=== PATIENT | female | born 1960 | race Caucasian/White ===

== ENCOUNTER 2016-12-29 15:01 | Emergency (ER) | payer OTHER ==
--- NOTE | 2016-12-29 16:19 | DIAGNOSTIC IMAGING REPORT ---
PROCEDURE: XR CHEST 2 VIEW INDICATION: COUGH TECHNIQUE: PA and lateral views. COMPARISON: None. FINDINGS: Lungs are clear. Mild cardiomegaly. The pulmonary vasculature is normal. Thorax is normal. IMPRESSION: 1. Mild cardiomegaly. Lungs clear.
--- NOTE | 2016-12-29 18:11 | ED NURSING NOTES ---
Clinical Report - Nurses [facility] [address] [place] [address] 12/29/2016 15:04 [id number] Triage time 15:12 Dec 29 2016. Acuity: LEVEL 3. Chief Complaint: SHORTNESS OF BREATH, DIFFICULTY BREATHING and WHEEZING. Alert. CHYNA COMA SCORE: [place] Coma Scale: 15- eyes open spontaneously (4); best verbal response- oriented x 4 (5); best motor response- obeys commands (6). --15:41 Ronnie Leonard R.N. 15:16 12/29/16. BP: 156/75. HR: 101. RR: 18. O2 saturation: 100% on room air. Temp: 98.1 F. Pain level now: 03/31. Additional comments: MALLORY pain and stomach. --15:41 Ronnie Leonard R.N. Weight: 102.9 kg stated. Height/Length: 69 inches Per Patient. BMI: 33.5. --15:20 Ronnie Leonard R.N. Medications NovoLOG Subcutaneous 45 Units, 4-6 times x daily. --15:23 Ronnie Leonard R.N. Lantus Subcutaneous 60 Units, every PM. --15:24 Ronnie Leonard R.N. Levothyroxine Sodium Oral 88 mcg, daily. --15:25 Ronnie Leonard R.N. AmLODIPine Besylate Oral 5 mg, daily. --15:27 Ronnie Leonard R.N. Gabapentin Oral 600 mg, at bedtime. --15:28 Ronnie Leonard R.N. Qvar Inhalation (Aerosol Solution 40 mcg/act) 1-2 puffs, daily. --15:29 Ronnie Leonard R.N. Flonase Nasal. --15:30 Ronnie Leonard R.N. Losartan Potassium Oral 100 mg, daily. --15:31 Ronnie Leonard R.N. NexIUM Oral. --15:32 Ronnie Leonard R.N. Allergies Morphine and Related. --15:32 Ronnie Leonard R.N. Darovet. --15:33 Ronnie Leonard R.N. Percocet. Definite Moderate(anxiety) (Hallucinations) --15:33 Ronnie Leonard R.N. Percodan. Definite Moderate(anxiety) (Hallucinations) --15:33 Ronnie Leonard R.N. History Arrived by private vehicle. Historian: patient. Accompanied by family. Primary physician ([facility]). ( SOB associated with N/V and dizziness. 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 Onset. (about 2 days ago). Treatment RETAIL ADVISOR: None. PAST MEDICAL HX: Hypertension. Immunizations: status is unknown. The patient is post-menopausal. SOCIAL HX: Never smoker. Alcohol use; consumes two liquor daily. No drug use. Infectious disease exposure. (maybe Hanta Virus (?)). ABUSE ASSESSMENT: No report of abuse. FALL RISK ASSESSMENT: Fall risk assessment completed. No fall risk identified. NUTRITIONAL RISK ASSESSMENT: The nutritional risk assessment revealed no deficiencies. FUNCTIONAL ASSESSMENT: Functional assessment: no impairments noted. LEARNING NEEDS ASSESSMENT: The learning needs assessment revealed no barriers. SKIN INTEGRITY ASSESSMENT: Skin integrity risk assessment completed. No skin integrity risk identified. --15:41 Ronnie Leonard R.N. ( Just recently had Pneumonia). --15:44 Ronnie Leonard R.N. PROBLEMS: Thyroid Disease. Diabetes Mellitus. --15:34 Ronnie Leonard R.N. UTI - Urinary Tract Infection. Sinusitis. Migraine Headache. Depression. --15:36 Ronnie Leonard R.N. Pneumonia. --15:43 Ronnie Leonard R.N. ADDITIONAL SURGERIES: Appendectomy. Breast Surgery for Cyst. Cholecystectomy. . Tubal Ligation. --15:34 Ronnie Leonard R.N. Interventions ID and allergy band on patient. To treatment room. --15:41 Ronnie Leonard R.N. PHYSICAL ASSESSMENT Ambulatory to room. GENERAL / NEURO / PSYCH: Alert. Oriented X 4. HEENT: Mucous membranes are pink. RESPIRATORY: Respirations not labored. CVS: Capillary refill less than 2 seconds. GI / : Bowel sounds within normal limits. SKIN: Skin is warm and dry. Normal skin turgor. --15:42 Ronnie Leonard R.N. NURSING PROGRESS NOTES Patient gowned. Reassurance given. Patient identifiers checked. Call light placed in reach. Side rails up x 2. Patient ready for evaluation- chart flagged and ED physician notified. --15:42 Ronnie Leonard R.N. 16:21 12/29/2016 Site #1 started via IV in the right antecubital space with an 20g angiocath; one attempt. Blood drawn: rainbow set. Labeled in the presence of the patient. --16:26 Sheeba Garcia R.N. 16:26 12/29/2016 Started bag #1 250 mL IV Fluids IV NS (Saline); at 250 mL/hr over 4 hour(s) via site #1 via IV pump. Allergies verified and confirmed 5 rights. IV patency established. IV site checked: no pain, redness, or swelling. IV flushed thoroughly pre- and post-medication administration. Completed per protocol. --16:26 Sheeba Garcia R.N. 16:36 12/29/2016 PHENERGAN (Promethazine HCl) IVP 12.5 mg given over 30 second(s) via site #1. Allergies verified and confirmed 5 rights. IV patency established. IV site checked: no pain, redness, or swelling. IV flushed thoroughly pre- and post-medication administration. IVP given by RN. --16:36 Sheeba Garcia R.N. 17:00 12/29/16. BP: 118/64 (regular adult cuff) taken on the left arm, via an automated monitor, while lying. HR: 92. RR: 15. O2 saturation: 100%. Pain level now: 0/10. --18:53 Sheeba Garcia R.N. late entry - 17:00. Cardiac rhythm: normal sinus rhythm. monitor worker, pulse oximeter and NIBP monitor placed on patient. Reassurance given. Call light placed in reach. Side rails up. Bed placed in lowest position. Brakes of bed on. --18:53 Sheeba Garcia R.N. 17:31 12/29/2016 PHENERGAN IVP Response: no adverse reaction pain is improving. Symptoms have improved the patient feels better. --18:56 Sheeba Garcia R.N. 18:31 12/29/2016 IV Fluids IV NS Discontinued: bag #1 infused upon discharge. Total amount infused: 800 mL. IV patency established. IV site checked: no pain, redness, or swelling. IV flushed thoroughly. --18:56 Sheeba Garcia R.N. DISPOSITION / DISCHARGE 18:30 12/29/2016 Site #1 removed upon discharge. Catheter intact. Manual pressure and bandaid applied. --18:54 Shebea Garcia R.N. Cardiac rhythm: normal sinus rhythm. Departure time: 1834. Condition at departure: improved and stable. The goals identified in the patient's plan of care were met. No learning barriers present. Discharge instructions provided and reviewed with the patient. Reviewed medication(s) side effects, precautions, dosing and course information. Prescription(s) given to the patient. Patient verbalized understanding. Written instructions provided in Ukrainian. The patient was discharged by the physician. She was discharged home and accompanied by glue drier operator. She left the Emergency Department ambulatory and via private vehicle. Diver'S Tender driving. FALL RISK ASSESSMENT: Fall risk assessment completed. No fall risk identified. CHYNA COMA SCORE: [place]yna Coma Scale: 15- eyes open spontaneously (4); best verbal response- oriented x 4 (5); best motor response- obeys commands (6). --18:55 Sheeba Garcia R.N. 18:30 12/29/16. BP: 136/79 (regular adult cuff) taken on the left arm, via an automated monitor, while sitting. HR: 89. RR: 16. O2 saturation: 100% on room air. Temp: 98.2 F (oral). Pain level now: 0/10. --18:55 Sheeba Garcia R.N. Locked/Released at 12/29/2016 18:57 by Sheeba Garcia R.N.
--- NOTE | 2016-12-29 18:11 | ED ORDER SUMMARY ---
..... Patient: HALEIGH TALAMANTES OrderSheet [facility] VisitID: [id number] [address] [place] [address] 56y, F Registration Date/Time: 12/29/2016 ORDER SHEET Weight: 102.9 kg (stated) Allergies: Morphine and Related, Darovet, Percocet, Percodan GENERAL ORDERS: Chest 2V Urgent (15:56 12/29/2016 Asmita GERONIMO) (Ack 16:10 Juan) (16:25 EHassan R.N.) UA-Culture if indicated Urgent (15:56 12/29/2016 Asmita GERONIMO) (Ack 16:10 Juan) (16:24 EHassan R.N.) Cardiac Panel Stat (15:56 12/29/2016 Asmtia GERONIMO) (Ack 16:10 Juan) (16:24 EHassan R.N.) Lipase Urgent (15:56 12/29/2016 Asmita GERONIMO) ([facility]ck [facility] (16:25 EHassan R.N.) CRP Urgent (15:56 12/29/2016 Asmita GERONIMO) (Ack 16:10 [facility]) (16:25 EHassan R.N.) Rapid Influenza Screen (Nasal Pharyngeal) (swab) Urgent (16:10 12/29/2016 Asmita GERONIMO) (Ack 16:12 [facility]) (16:25 EHassan R.N.) MEDICATION ORDERS: Phenergan IV 12.5 mg (HIGH ALERT MEDICATION, NOW) (16:32 12/29/2016 Asmita GERONIMO) (16:36 EHassacamron R.N.) IV FLUIDS: IV NS : initial bolus none -, then 250 mL/hr for 4h (NOW); Routine (15:56 12/29/2016 Asmita GERONIMO) (16:26 EHassacamron R.N.) Zofran IV 4 mg (NOW) (15:56 12/29/2016 Asmita GERONIMO) (Cancelled: Patient [id number] EHassan R.N.) ORDER SHEET NOTES: [Electronically signed by Sheeba Garcia R.N. (18:57 12/29/2016)] [Electronically signed by Sanford Horton MD (10:36 01/01/2017)] [Electronically locked/signed by Sheeba Garcia R.N. (18:57 12/29/2016)]
--- NOTE | 2016-12-29 18:11 | ED NURSING NOTES ---
Clinical Report - Nurses [facility] [address] [place] [address] 12/29/2016 15:04 [id number] Triage time 15:12 Dec 29 2016. Acuity: LEVEL 3. Chief Complaint: SHORTNESS OF BREATH, DIFFICULTY BREATHING and WHEEZING. Alert. CHYNA COMA SCORE: [place] Coma Scale: 15- eyes open spontaneously (4); best verbal response- oriented x 4 (5); best motor response- obeys commands (6). --15:41 Ronnie Leonard R.N. 15:16 12/29/16. BP: 156/75. HR: 101. RR: 18. O2 saturation: 100% on room air. Temp: 98.1 F. Pain level now: 03/31. Additional comments: MALLORY pain and stomach. --15:41 Ronnie Leonard R.N. Weight: 102.9 kg stated. Height/Length: 69 inches Per Patient. BMI: 33.5. --15:20 Ronnie Leonard R.N. Medications NovoLOG Subcutaneous 45 Units, 4-6 times x daily. --15:23 Ronnie Leonard R.N. Lantus Subcutaneous 60 Units, every PM. --15:24 Ronnie Leonard R.N. Levothyroxine Sodium Oral 88 mcg, daily. --15:25 Ronnie Leonard R.N. AmLODIPine Besylate Oral 5 mg, daily. --15:27 Ronnie Leonard R.N. Gabapentin Oral 600 mg, at bedtime. --15:28 Ronnie Leonard R.N. Qvar Inhalation (Aerosol Solution 40 mcg/act) 1-2 puffs, daily. --15:29 Ronnie Leonard R.N. Flonase Nasal. --15:30 Ronnie Leonard R.N. Losartan Potassium Oral 100 mg, daily. --15:31 Ronnie Leonard R.N. NexIUM Oral. --15:32 Ronnie Leonard R.N. Allergies Morphine and Related. --15:32 Ronnie Leonard R.N. Darovet. --15:33 Ronnie Leonard R.N. Percocet. Definite Moderate(anxiety) (Hallucinations) --15:33 Ronnie Leonard R.N. Percodan. Definite Moderate(anxiety) (Hallucinations) --15:33 Ronnie Leonard R.N. History Arrived by private vehicle. Historian: patient. Accompanied by family. Primary physician ([facility]). ( SOB associated with N/V and dizziness. 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 Onset. (about 2 days ago). Treatment HAND TWISTER: None. PAST MEDICAL HX: Hypertension. Immunizations: status is unknown. The patient is post-menopausal. SOCIAL HX: Never smoker. Alcohol use; consumes two liquor daily. No drug use. Infectious disease exposure. (maybe Hanta Virus (?)). ABUSE ASSESSMENT: No report of abuse. FALL RISK ASSESSMENT: Fall risk assessment completed. No fall risk identified. NUTRITIONAL RISK ASSESSMENT: The nutritional risk assessment revealed no deficiencies. FUNCTIONAL ASSESSMENT: Functional assessment: no impairments noted. LEARNING NEEDS ASSESSMENT: The learning needs assessment revealed no barriers. SKIN INTEGRITY ASSESSMENT: Skin integrity risk assessment completed. No skin integrity risk identified. --15:41 Ronnie Leonard R.N. ( Just recently had Pneumonia). --15:44 Ronnie Leonard R.N. PROBLEMS: Thyroid Disease. Diabetes Mellitus. --15:34 Ronnie Leonard R.N. UTI - Urinary Tract Infection. Sinusitis. Migraine Headache. Depression. --15:36 Ronnie Leonard R.N. Pneumonia. --15:43 Ronnie Leonard R.N. ADDITIONAL SURGERIES: Appendectomy. Breast Surgery for Cyst. Cholecystectomy. . Tubal Ligation. --15:34 Ronnie Leonard R.N. Interventions ID and allergy band on patient. To treatment room. --15:41 Ronnie Leonard R.N. PHYSICAL ASSESSMENT Ambulatory to room. GENERAL / NEURO / PSYCH: Alert. Oriented X 4. HEENT: Mucous membranes are pink. RESPIRATORY: Respirations not labored. CVS: Capillary refill less than 2 seconds. GI / : Bowel sounds within normal limits. SKIN: Skin is warm and dry. Normal skin turgor. --15:42 Ronnie Leonard R.N. NURSING PROGRESS NOTES Patient gowned. Reassurance given. Patient identifiers checked. Call light placed in reach. Side rails up x 2. Patient ready for evaluation- chart flagged and ED physician notified. --15:42 Ronnie Leonard R.N. 16:21 12/29/2016 Site #1 started via IV in the right antecubital space with an 20g angiocath; one attempt. Blood drawn: rainbow set. Labeled in the presence of the patient. --16:26 Sheeba Garcia R.N. 16:26 12/29/2016 Started bag #1 250 mL IV Fluids IV NS (Saline); at 250 mL/hr over 4 hour(s) via site #1 via IV pump. Allergies verified and confirmed 5 rights. IV patency established. IV site checked: no pain, redness, or swelling. IV flushed thoroughly pre- and post-medication administration. Completed per protocol. --16:26 Sheeba Garcia R.N. 16:36 12/29/2016 PHENERGAN (Promethazine HCl) IVP 12.5 mg given over 30 second(s) via site #1. Allergies verified and confirmed 5 rights. IV patency established. IV site checked: no pain, redness, or swelling. IV flushed thoroughly pre- and post-medication administration. IVP given by RN. --16:36 Sheeba Garcia R.N. 17:00 12/29/16. BP: 118/64 (regular adult cuff) taken on the left arm, via an automated monitor, while lying. HR: 92. RR: 15. O2 saturation: 100%. Pain level now: 0/10. --18:53 Sheeba Garcia R.N. late entry - 17:00. Cardiac rhythm: normal sinus rhythm. youth nutritional monitor, pulse oximeter and NIBP monitor placed on patient. Reassurance given. Call light placed in reach. Side rails up. Bed placed in lowest position. Brakes of bed on. --18:53 Sheeba Garcia R.N. 17:31 12/29/2016 PHENERGAN IVP Response: no adverse reaction pain is improving. Symptoms have improved the patient feels better. --18:56 Sheeba Garcia R.N. 18:31 12/29/2016 IV Fluids IV NS Discontinued: bag #1 infused upon discharge. Total amount infused: 800 mL. IV patency established. IV site checked: no pain, redness, or swelling. IV flushed thoroughly. --18:56 Sheeba Garcia R.N. DISPOSITION / DISCHARGE 18:30 12/29/2016 Site #1 removed upon discharge. Catheter intact. Manual pressure and bandaid applied. --18:54 Sheeba Garcia R.N. Cardiac rhythm: normal sinus rhythm. Departure time: 1834. Condition at departure: improved and stable. The goals identified in the patient's plan of care were met. No learning barriers present. Discharge instructions provided and reviewed with the patient. Reviewed medication(s) side effects, precautions, dosing and course information. Prescription(s) given to the patient. Patient verbalized understanding. Written instructions provided in Syriac. The patient was discharged by the physician. She was discharged home and accompanied by industrial pharmacist. She left the Emergency Department ambulatory and via private vehicle. Customer Security Clerk driving. FALL RISK ASSESSMENT: Fall risk assessment completed. No fall risk identified. CHYNA COMA SCORE: [place]yna Coma Scale: 15- eyes open spontaneously (4); best verbal response- oriented x 4 (5); best motor response- obeys commands (6). --18:55 Sheeba Garcia R.N. 18:30 12/29/16. BP: 136/79 (regular adult cuff) taken on the left arm, via an automated monitor, while sitting. HR: 89. RR: 16. O2 saturation: 100% on room air. Temp: 98.2 F (oral). Pain level now: 0/10. --18:55 Sheeba Garcia R.N. Locked/Released at 12/29/2016 18:57 by Sheeba Garcia R.N.
--- NOTE | 2016-12-29 18:11 | ED ORDER SUMMARY ---
..... Patient: HALEIGH TALAMANTES OrderSheet [facility] VisitID: [id number] [address] [place] [address] 56y, F Registration Date/Time: 12/29/2016 ORDER SHEET Weight: 102.9 kg (stated) Allergies: Morphine and Related, Darovet, Percocet, Percodan GENERAL ORDERS: Chest 2V Urgent (15:56 12/29/2016 Asmita GERONIMO) (Ack 16:10 Juan) (16:25 EHassan R.N.) UA-Culture if indicated Urgent (15:56 12/29/2016 Asmita GERONIMO) (Ack 16:10 Juan) (16:24 EHassan R.N.) Cardiac Panel Stat (15:56 12/29/2016 Asmita GERONIMO) (Ack 16:10 Juan) (16:24 EHassan R.N.) Lipase Urgent (15:56 12/29/2016 Asmita GERONIMO) ([facility] (16:25 EHassan R.N.) CRP Urgent (15:56 12/29/2016 Asmita GERONIMO) (Ack 16:10 [facility]) (16:25 EHassan R.N.) Rapid Influenza Screen (Nasal Pharyngeal) (swab) Urgent (16:10 12/29/2016 Asmita GERONIMO) (Ack 16:12 [facility] (16:25 EHassan R.N.) MEDICATION ORDERS: Phenergan IV 12.5 mg (HIGH ALERT MEDICATION, NOW) (16:32 12/29/2016 Asmita GERONIMO) (16:36 EHassacamron R.N.) IV FLUIDS: IV NS : initial bolus none -, then 250 mL/hr for 4h (NOW); Routine (15:56 12/29/2016 Asmita GERONIMO) (16:26 EHassacamron R.N.) Zofran IV 4 mg (NOW) (15:56 12/29/2016 Asmita GERONIMO) (Cancelled: Patient [id number] EHassan R.N.) ORDER SHEET NOTES: [Electronically signed by Sheeba Garcia R.N. (18:57 12/29/2016)] [Electronically signed by Sanford Horton MD (10:36 01/01/2017)] [Electronically locked/signed by Sheeba Garcia R.N. (18:57 12/29/2016)]
--- NOTE | 2016-12-29 18:11 | ED CLINICAL REPORT ---
Clinical Report - Physicians/Mid Levels [facility] [address] [place] [address] 12/29/2016 15:04 Patient: HALEIGH TALAMANTES Time Seen: 15:14 Dec 29 2016. Arrived- By private vehicle. Historian- patient. CPT: ER phys charges level 4 (#[id number]). HISTORY OF PRESENT ILLNESS Chief Complaint: DYSPNEA and ABDOMINAL PAIN cough, vomiting. This started 2 days [employer] and is still present. The dyspnea is described as moderate and is worsened by exertion and is improved by rest. The patient has had sputum production and a cough. No fever, sweating episodes, wheezing or dyspnea on exertion. No chest pain or discomfort, calf pain, foot swelling or dizziness. No tingling, numbness or palpitations. 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 She worries about possible Hanta virus as the cause of her illness.,). Similar symptoms previously: Recent medical care: Not recently seen/assessed. REVIEW OF SYSTEMS No muscle aches, eye irritation, sore throat, nasal discharge or sinus drainage. No diarrhea, black stools, bloody stools, headache or fainting episodes. No skin rash, enlarged lymph nodes or joint pain. The patient has had nausea and moderate, constant abdominal pain. The pain is described as located in the upper abdomen, right upper quadrant and left upper quadrant. She has had vomiting (today). All systems otherwise negative, except as recorded above. PAST HISTORY Influenza: October this year with secondary pneumonia for 3 weeks. Recently over that illness for the past 3 weeks. Thyroid Disease. Diabetes Mellitus. - UTI - Urinary Tract Infection. Sinusitis. Migraine Headache. Depression. - Pneumonia. -- ADDITIONAL SURGERIES: Appendectomy. Breast Surgery for Cyst. Cholecystectomy. . Tubal Ligation. Severe gastroesophageal reflux. Medications: NexIUM Oral. Losartan Potassium Oral 100 mg, daily. Flonase Nasal. Qvar Inhalation (Aerosol Solution 40 mcg/act) 1-2 puffs, daily. Gabapentin Oral 600 mg, at bedtime. AmLODIPine Besylate Oral 5 mg, daily. Levothyroxine Sodium Oral 88 mcg, daily. Lantus Subcutaneous 60 Units, every PM. NovoLOG Subcutaneous 45 Units, 4-6 times x daily. Allergies: Darovet. Morphine and Related. Percocet. Definite Moderate(anxiety) (Hallucinations) Percodan. Definite Moderate(anxiety) (Hallucinations). SOCIAL HISTORY Never smoker. Regular alcohol use; consumes liquor. No drug use. ADDITIONAL NOTES The nursing notes have been reviewed. PHYSICAL EXAM Vital Signs: 12/29/2016 15:16 BP: 156/75. HR: 101. RR: 18. O2 saturation: 100%. Temp: 98.1 F. Pain level now: 03/31. Appearance: Alert. No acute distress. Eyes: Eyes normal inspection. ENT: Pharynx normal. Neck: Normal inspection. CVS: Normal heart rate and rhythm. Heart sounds normal. Pulses normal. Respiratory: No respiratory distress. Expiratory mild bilateral wheezes diffusely. Abdomen: Soft and nontender. Back: Normal inspection. No CVA tenderness. Skin: Skin warm. Normal skin color. No rash. Extremities: Extremities exhibit normal ROM. No calf tenderness. No lower extremity edema. Neuro: Oriented X 3. No motor deficit. No sensory deficit. Reflexes normal. LABS, X-RAYS, AND EKG Chest X-ray: No acute disease. Mild cardiomegaly. Normal lung markings present. No infiltrate. Views: PA and lateral. Technique: good. The X-rays were independently viewed by me and interpreted by the radiologist. Laboratory Tests: UA-Culture if indicated: (ALEXSANDER: 12/29/2016 16:10) ( MsgRcvd 12/29/2016 16:37) Final results Test Result Flag Units (Reference) URINE COLOR YELLOW URINE APPEARANCE CLEAR URINE GLUCOSE NEGATIVE (NEGATIVE) URINE BILIRUBIN NEGATIVE (NEGATIVE) URINE KETONE NEGATIVE (NEGATIVE) URINE SPECIFIC GRAVITY 1.020 (1.010-1.030) URINE PH 7.5 (5.0-8.0) URINE PROTEIN TRACE (NEGATIVE) URINE UROBILINOGEN 0.2 EU/dL (0.2-1.0) URINE NITRITE NEGATIVE (NEGATIVE) URINE BLOOD NEGATIVE (NEGATIVE) URINE LEUK ESTERASE NEGATIVE (NEGATIVE) URINE RBC NONE SEEN rbc/hpf (0-1) URINE WBC 1-3 wbc/hpf (0-1) URINE EPITHELIAL CELLS 1-3 EPI/hpf (0-5) URINE BACTERIA FEW (1+) (NONE SEEN) 4+ MUCOUS URINE COMMENT CULT NOT INDICATED URINE CULTURES ARE SET-UP BASED ON THE FOLLOWING CRITERIA:POSITIVE NITRITEPOSITIVE LEUKOCYTE ESTERASEGREATER THAN 10 WHITE BLOOD CELLSMODERATE (2+) OR GREATER BACTERIA CBC w Diff: (ALEXSANDER: 12/29/2016 16:20) ( [facility] 12/29/2016 17:20) Final results Test Result Flag Units (Reference) WHITE BLOOD COUNT 6.5 K/uL (4.5-11.5) RED BLOOD COUNT 4.68 M/uL (4.00-5.20) HEMOGLOBIN 14.4 gm/dL (12.0-16.0) HEMATOCRIT 41.8 % (36.0-46.0) MEAN CELL VOLUME 89 fL (80-100) MEAN CORPUSCULAR HGB 31 pg (26-34) MEAN CORPUSCULAR HGB CONC 34 g/dL (31-37) RED CELL DISTRIBUTION WIDTH 13.8 % (11.6-14.8) PLATELET COUNT 375 K/uL (150-400) NEUTROPHIL % 67.3 % (50-75) LYMPH % 19.9 L % (25-40) MONO % 9.4 % (3-14) EOSINOPHIL % 3.0 % (0-4) BASOPHIL % 0.4 % (0-2) Lipase: (ALEXSANDER: 12/29/2016 16:20) ( [facility] 12/29/2016 17:23) Final results Test Result Flag Units (Reference) LIPASE 75 U/L (73-393) C-REACTIVE PROTEIN 1.7 H mg/dL (0.0-0.9) CHEM 13 PANEL: (ALEXSANDER: 12/29/2016 16:20) ( [facility] 12/29/2016 17:29) Final results Test Result Flag Units (Reference) GLUCOSE 149 H mg/dL (70-110) BUN 9 mg/dL (7-18) CREATININE 0.7 mg/dL (0.6-1.3) Estimated GFR >60 mL/min Estimated GFR- >60 mL/min Note: Persistent reduction over 3 months in eGFR<60 mL/min/1.73 m2 defines CKD. Patients with eGFR values>=60 mL/min/1.73 m2 may also have CKD if evidence ofpersistent proteinuria. Additional information may be foundat [email or web address].org. SODIUM 137 mmol/L (136-145) POTASSIUM 3.3 L mmol/L (3.5-5.1) CHLORIDE 99 mmol/L (98-107) CARBON DIOXIDE 31 mmol/L (21-32) CALCIUM 9.7 mg/dL (8.5-10.1) TOTAL PROTEIN 8.4 H g/dL (6.4-8.2) ALBUMIN 4.0 g/dL (3.3-5.0) BILIRUBIN, TOTAL 0.4 mg/dL (0.0-1.0) ALKALINE PHOSPHATASE 84 U/L (46-116) AST (SGOT) 60 H U/L (15-37) ALT (SGPT) 76 U/L (12-78) CPK 155 U/L (24-260) MAGNESIUM 1.9 mg/dL (1.8-2.4) TROPONIN I <0.05 ng/mL (0.00-1.5) TROPONIN REFERENCE RANGE:<0.1 NEGATIVE0.1-1.5 INDETERMINANT>1.5 POSITIVE Rapid Influenza Screen: (ALEXSANDER: 12/29/2016 16:28) ( MsgRcvd 12/29/2016 17:29) Final results SPECIMEN DESCRIPTION: SWAB Test Result Flag Units (Reference) RAPID INFLUENZA SCREEN DATE: 12/29/16 INFLUENZA A: NEGATIVE SCREEN FOR INFLUENZA A INFLUENZA B: NEGATIVE SCREEN FOR INFLUENZA B . PROGRESS AND PROCEDURES Course of Care: IV NS Phenergan 12.5 mg IV. Patient/family counseled. Disposition: Discharged. Condition: stable and improved. CLINICAL IMPRESSION Acute dyspnea Acute bacterial mucopurulent bronchitis. Acute cough. Severe reflux exacerbation. INSTRUCTIONS Rest. Do not work for two days until better. Take clear liquids only (frequent sips) for the next 12 hours until better. Advance diet as tolerated. Take clear liquids only. Other diet: Until better. Warnings: Further evaluation is necessary. GENERAL WARNINGS: Return or contact your physician immediately if your condition worsens or changes unexpectedly, if not improving as expected, or if other problems arise. Your Current Medications: CONTINUE TAKING THE FOLLOWING MEDICATIONS: AmLODIPine Besylate Oral : 5 mg daily. Flonase Nasal. Gabapentin Oral : 600 mg at bedtime. Lantus Subcutaneous : 60 Units every PM. Levothyroxine Sodium Oral : 88 mcg daily. Losartan Potassium Oral : 100 mg daily. NexIUM Oral. NovoLOG Subcutaneous : 45 Units 4-6 times x daily. Qvar Inhalation : Aerosol Solution 40 mcg/act, 1-2 puffs daily. Prescription Medications: Zithromax 250 mg tablets: take 2 orally today, followed by 1 daily for the next 4 days. No refills. Substitution is permissible. Phenergan 12.5 mg tablets: take 1-2 orally every 6 hours as needed for nausea. Dispense fifteen (15). No refill. Substitution is permissible Carafate 1 gm tablets: take 1 orally four times daily (30 minutes before meals and at bedtime) for 10 days. Dispense forty (40). No refills. Substitution is permissible. Prilosec 40 mg capsules: take 1 capsule orally every day for 10 days. Dispense ten (10). No refill. Substitution is permissible. OTC Medications: Acetaminophen (available over the counter): take according to label instructions. Follow-up: Follow up with your doctor in one week. Call for an appointment. Understanding of the discharge instructions verbalized by patient. (Electronically signed by Sanford Horton MD 01/01/2017 10:36)
--- NOTE | 2016-12-29 18:11 | ED CLINICAL REPORT ---
Clinical Report - Physicians/Mid Levels [facility] [address] [place] [address] 12/29/2016 15:04 Patient: HALEIGH TALAMANTES Time Seen: 15:14 Dec 29 2016. Arrived- By private vehicle. Historian- patient. CPT: ER phys charges level 4 (#[id number]). HISTORY OF PRESENT ILLNESS Chief Complaint: DYSPNEA and ABDOMINAL PAIN cough, vomiting. This started 2 days [employer] and is still present. The dyspnea is described as moderate and is worsened by exertion and is improved by rest. The patient has had sputum production and a cough. No fever, sweating episodes, wheezing or dyspnea on exertion. No chest pain or discomfort, calf pain, foot swelling or dizziness. No tingling, numbness or palpitations. 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 She worries about possible Hanta virus as the cause of her illness.,). Similar symptoms previously: Recent medical care: Not recently seen/assessed. REVIEW OF SYSTEMS No muscle aches, eye irritation, sore throat, nasal discharge or sinus drainage. No diarrhea, black stools, bloody stools, headache or fainting episodes. No skin rash, enlarged lymph nodes or joint pain. The patient has had nausea and moderate, constant abdominal pain. The pain is described as located in the upper abdomen, right upper quadrant and left upper quadrant. She has had vomiting (today). All systems otherwise negative, except as recorded above. PAST HISTORY Influenza: October this year with secondary pneumonia for 3 weeks. Recently over that illness for the past 3 weeks. Thyroid Disease. Diabetes Mellitus. - UTI - Urinary Tract Infection. Sinusitis. Migraine Headache. Depression. - Pneumonia. -- ADDITIONAL SURGERIES: Appendectomy. Breast Surgery for Cyst. Cholecystectomy. . Tubal Ligation. Severe gastroesophageal reflux. Medications: NexIUM Oral. Losartan Potassium Oral 100 mg, daily. Flonase Nasal. Qvar Inhalation (Aerosol Solution 40 mcg/act) 1-2 puffs, daily. Gabapentin Oral 600 mg, at bedtime. AmLODIPine Besylate Oral 5 mg, daily. Levothyroxine Sodium Oral 88 mcg, daily. Lantus Subcutaneous 60 Units, every PM. NovoLOG Subcutaneous 45 Units, 4-6 times x daily. Allergies: Darovet. Morphine and Related. Percocet. Definite Moderate(anxiety) (Hallucinations) Percodan. Definite Moderate(anxiety) (Hallucinations). SOCIAL HISTORY Never smoker. Regular alcohol use; consumes liquor. No drug use. ADDITIONAL NOTES The nursing notes have been reviewed. PHYSICAL EXAM Vital Signs: 12/29/2016 15:16 BP: 156/75. HR: 101. RR: 18. O2 saturation: 100%. Temp: 98.1 F. Pain level now: 03/31. Appearance: Alert. No acute distress. Eyes: Eyes normal inspection. ENT: Pharynx normal. Neck: Normal inspection. CVS: Normal heart rate and rhythm. Heart sounds normal. Pulses normal. Respiratory: No respiratory distress. Expiratory mild bilateral wheezes diffusely. Abdomen: Soft and nontender. Back: Normal inspection. No CVA tenderness. Skin: Skin warm. Normal skin color. No rash. Extremities: Extremities exhibit normal ROM. No calf tenderness. No lower extremity edema. Neuro: Oriented X 3. No motor deficit. No sensory deficit. Reflexes normal. LABS, X-RAYS, AND EKG Chest X-ray: No acute disease. Mild cardiomegaly. Normal lung markings present. No infiltrate. Views: PA and lateral. Technique: good. The X-rays were independently viewed by me and interpreted by the radiologist. Laboratory Tests: UA-Culture if indicated: (ALEXSANDER: 12/29/2016 16:10) ( MsgRcvd 12/29/2016 16:37) Final results Test Result Flag Units (Reference) URINE COLOR YELLOW URINE APPEARANCE CLEAR URINE GLUCOSE NEGATIVE (NEGATIVE) URINE BILIRUBIN NEGATIVE (NEGATIVE) URINE KETONE NEGATIVE (NEGATIVE) URINE SPECIFIC GRAVITY 1.020 (1.010-1.030) URINE PH 7.5 (5.0-8.0) URINE PROTEIN TRACE (NEGATIVE) URINE UROBILINOGEN 0.2 EU/dL (0.2-1.0) URINE NITRITE NEGATIVE (NEGATIVE) URINE BLOOD NEGATIVE (NEGATIVE) URINE LEUK ESTERASE NEGATIVE (NEGATIVE) URINE RBC NONE SEEN rbc/hpf (0-1) URINE WBC 1-3 wbc/hpf (0-1) URINE EPITHELIAL CELLS 1-3 EPI/hpf (0-5) URINE BACTERIA FEW (1+) (NONE SEEN) 4+ MUCOUS URINE COMMENT CULT NOT INDICATED URINE CULTURES ARE SET-UP BASED ON THE FOLLOWING CRITERIA:POSITIVE NITRITEPOSITIVE LEUKOCYTE ESTERASEGREATER THAN 10 WHITE BLOOD CELLSMODERATE (2+) OR GREATER BACTERIA CBC w Diff: (ALEXSANDER: 12/29/2016 16:20) ( [facility] 12/29/2016 17:20) Final results Test Result Flag Units (Reference) WHITE BLOOD COUNT 6.5 K/uL (4.5-11.5) RED BLOOD COUNT 4.68 M/uL (4.00-5.20) HEMOGLOBIN 14.4 gm/dL (12.0-16.0) HEMATOCRIT 41.8 % (36.0-46.0) MEAN CELL VOLUME 89 fL (80-100) MEAN CORPUSCULAR HGB 31 pg (26-34) MEAN CORPUSCULAR HGB CONC 34 g/dL (31-37) RED CELL DISTRIBUTION WIDTH 13.8 % (11.6-14.8) PLATELET COUNT 375 K/uL (150-400) NEUTROPHIL % 67.3 % (50-75) LYMPH % 19.9 L % (25-40) MONO % 9.4 % (3-14) EOSINOPHIL % 3.0 % (0-4) BASOPHIL % 0.4 % (0-2) Lipase: (ALEXSANDER: 12/29/2016 16:20) ( [facility] 12/29/2016 17:23) Final results Test Result Flag Units (Reference) LIPASE 75 U/L (73-393) C-REACTIVE PROTEIN 1.7 H mg/dL (0.0-0.9) CHEM 13 PANEL: (ALEXSANDER: 12/29/2016 16:20) ( [facility] 12/29/2016 17:29) Final results Test Result Flag Units (Reference) GLUCOSE 149 H mg/dL (70-110) BUN 9 mg/dL (7-18) CREATININE 0.7 mg/dL (0.6-1.3) Estimated GFR >60 mL/min Estimated GFR- >60 mL/min Note: Persistent reduction over 3 months in eGFR<60 mL/min/1.73 m2 defines CKD. Patients with eGFR values>=60 mL/min/1.73 m2 may also have CKD if evidence ofpersistent proteinuria. Additional information may be foundat [email or web address]. SODIUM 137 mmol/L (136-145) POTASSIUM 3.3 L mmol/L (3.5-5.1) CHLORIDE 99 mmol/L (98-107) CARBON DIOXIDE 31 mmol/L (21-32) CALCIUM 9.7 mg/dL (8.5-10.1) TOTAL PROTEIN 8.4 H g/dL (6.4-8.2) ALBUMIN 4.0 g/dL (3.3-5.0) BILIRUBIN, TOTAL 0.4 mg/dL (0.0-1.0) ALKALINE PHOSPHATASE 84 U/L (46-116) AST (SGOT) 60 H U/L (15-37) ALT (SGPT) 76 U/L (12-78) CPK 155 U/L (24-260) MAGNESIUM 1.9 mg/dL (1.8-2.4) TROPONIN I <0.05 ng/mL (0.00-1.5) TROPONIN REFERENCE RANGE:<0.1 NEGATIVE0.1-1.5 INDETERMINANT>1.5 POSITIVE Rapid Influenza Screen: (ALEXSANDER: 12/29/2016 16:28) ( MsgRcvd 12/29/2016 17:29) Final results SPECIMEN DESCRIPTION: SWAB Test Result Flag Units (Reference) RAPID INFLUENZA SCREEN DATE: 12/29/16 INFLUENZA A: NEGATIVE SCREEN FOR INFLUENZA A INFLUENZA B: NEGATIVE SCREEN FOR INFLUENZA B . PROGRESS AND PROCEDURES Course of Care: IV NS Phenergan 12.5 mg IV. Patient/family counseled. Disposition: Discharged. Condition: stable and improved. CLINICAL IMPRESSION Acute dyspnea Acute bacterial mucopurulent bronchitis. Acute cough. Severe reflux exacerbation. INSTRUCTIONS Rest. Do not work for two days until better. Take clear liquids only (frequent sips) for the next 12 hours until better. Advance diet as tolerated. Take clear liquids only. Other diet: Until better. Warnings: Further evaluation is necessary. GENERAL WARNINGS: Return or contact your physician immediately if your condition worsens or changes unexpectedly, if not improving as expected, or if other problems arise. Your Current Medications: CONTINUE TAKING THE FOLLOWING MEDICATIONS: AmLODIPine Besylate Oral : 5 mg daily. Flonase Nasal. Gabapentin Oral : 600 mg at bedtime. Lantus Subcutaneous : 60 Units every PM. Levothyroxine Sodium Oral : 88 mcg daily. Losartan Potassium Oral : 100 mg daily. NexIUM Oral. NovoLOG Subcutaneous : 45 Units 4-6 times x daily. Qvar Inhalation : Aerosol Solution 40 mcg/act, 1-2 puffs daily. Prescription Medications: Zithromax 250 mg tablets: take 2 orally today, followed by 1 daily for the next 4 days. No refills. Substitution is permissible. Phenergan 12.5 mg tablets: take 1-2 orally every 6 hours as needed for nausea. Dispense fifteen (15). No refill. Substitution is permissible Carafate 1 gm tablets: take 1 orally four times daily (30 minutes before meals and at bedtime) for 10 days. Dispense forty (40). No refills. Substitution is permissible. Prilosec 40 mg capsules: take 1 capsule orally every day for 10 days. Dispense ten (10). No refill. Substitution is permissible. OTC Medications: Acetaminophen (available over the counter): take according to label instructions. Follow-up: Follow up with your doctor in one week. Call for an appointment. Understanding of the discharge instructions verbalized by patient. (Electronically signed by Sanford Horton MD 01/01/2017 10:36)
--- NOTE | 2017-01-01 10:36 | ED MAR SUMMARY ---
..... Medication Administration Record [facility] [address] [place] [address] Patient: HALEIGH TALAMANTES Visit ID: [id number] 56y, F Weight: 102.9 kg Height/Length: 69 in BMI: 33.5 ALLERGIES: Percodan, Percocet, Darovet, Morphine and Related Start 16:26 12/29/2016 Sheeba Garcia R.N., Stop 18:31 12/29/2016 Sheeba Garcia R.N. Medication Administered: IV NS (SALINE), Dose: IV Fluids over 4 hour(s), Rate: 250 mL/hr, Dispensed: 250 mL bag, Site: #1 right AC. Medication Ordered: IV NS : initial bolus none -, then 250 mL/hr for 4h (NOW); Routine. Given 16:36 12/29/2016 Sheeba Garcia R.N. Medication Administered: PHENERGAN [IVP] (PROMETHAZINE HCL), Dose: 12.5 mg IVP over 30 second(s), Site: #1 right AC. Medication Ordered: Phenergan IV 12.5 mg (HIGH ALERT MEDICATION, NOW).
--- NOTE | 2017-01-01 10:36 | ED MED RECONCILIATION SUMMARY ---
Patient: HALEIGH TALAMANTES Medication Reconciliation Report [facility] VisitID: [id number] [address] [place] [address] 56y, F Registration Date/Time: 12/29/2016 Weight: 102.9 kg Height/Length: 69 in. BMI: 33.5 ALLERGIES: Darovet, Morphine and Related, Percocet, Percodan The patient's Home Medications are listed below: CONTINUE TAKING THE FOLLOWING MEDICATIONS: AmLODIPine Besylate Oral 5 mg, daily Flonase Nasal Gabapentin Oral 600 mg, at bedtime Lantus Subcutaneous 60 Units, every PM Levothyroxine Sodium Oral 88 mcg, daily Losartan Potassium Oral 100 mg, daily NexIUM Oral NovoLOG Subcutaneous 45 Units, 4-6 times x daily Qvar Inhalation (40 mcg/act) 1-2 puffs, daily The source(s) of the original Home Medication information: Not obtained. The following Medications were given to the patient in the Emergency Department: IV NS IV Fluids bolus 0, then 250 mL/hr, administered: 12/29/2016 4:26:00 PM PHENERGAN [IVP] IVP 12.5 mg, administered: 12/29/2016 4:36:00 PM The following Medications were prescribed to the patient: Acetaminophen (available over the counter): take according to label instructions. -- Sanford Horton MD Zithromax 250 mg tablets: take 2 orally today, followed by 1 daily for the next 4 days. No refills. Substitution is permissible. -- Sanford Horton MD Phenergan 12.5 mg tablets: take 1-2 orally every 6 hours as needed for nausea. Dispense fifteen (15). No refill. Substitution is permissible -- Sanford Horton MD Carafate 1 gm tablets: take 1 orally four times daily (30 minutes before meals and at bedtime) for 10 days. Dispense forty (40). No refills. Substitution is permissible. -- Sanford Horton MD Prilosec 40 mg capsules: take 1 capsule orally every day for 10 days. Dispense ten (10). No refill. Substitution is permissible. -- Sanford Horton MD
--- NOTE | 2017-01-01 10:36 | ED DISCHARGE INSTRUCTIONS ---
Patient: HALEIGH TALAMANTES General Instructions [facility] VisitID: [id number] [place] [address] 56y, F Registration Date/Time: 12/29/2016 Acute dyspnea Acute cough. Severe reflux exacerbation. INSTRUCTIONS Rest. Do not work for two days until better. Take clear liquids only (frequent sips) for the next 12 hours until better. Advance diet as tolerated. Take clear liquids only. Other diet: Until better. Warnings: Further evaluation is necessary. GENERAL WARNINGS: Return or contact your physician immediately if your condition worsens or changes unexpectedly, if not improving as expected, or if other problems arise. Your Current Medications: CONTINUE TAKING THE FOLLOWING MEDICATIONS: AmLODIPine Besylate Oral : 5 mg daily. Flonase Nasal. Gabapentin Oral : 600 mg at bedtime. Lantus Subcutaneous : 60 Units every PM. Levothyroxine Sodium Oral : 88 mcg daily. Losartan Potassium Oral : 100 mg daily. NexIUM Oral. NovoLOG Subcutaneous : 45 Units 4-6 times x daily. Qvar Inhalation : Aerosol Solution 40 mcg/act, 1-2 puffs daily. Prescription Medications: Zithromax 250 mg tablets: take 2 orally today, followed by 1 daily for the next 4 days. No refills. Substitution is permissible. Phenergan 12.5 mg tablets: take 1-2 orally every 6 hours as needed for nausea. Dispense fifteen (15). No refill. Substitution is permissible Carafate 1 gm tablets: take 1 orally four times daily (30 minutes before meals and at bedtime) for 10 days. Dispense forty (40). No refills. Substitution is permissible. Prilosec 40 mg capsules: take 1 capsule orally every day for 10 days. Dispense ten (10). No refill. Substitution is permissible. OTC Medications: Acetaminophen (available over the counter): take according to label instructions. Follow-up: Follow up with your doctor in one week. Call for an appointment. Understanding of the discharge instructions verbalized by patient. ADDITIONAL INFORMATION Dyspnea (Shortness Of Breath) Shortness of Breath (also known as "Dyspnea") is the sense that you can't catch your breath or can't get enough air. Dyspnea can be caused by many different conditions such as: Acute asthma attack Worsening of emphysema (also called "COPD") -- a lung diseasethat is caused by smoking A mucus plug blocks a large air passage in the lung -- this can occur with emphysema or chronic bronchitis Congestive Heart Failure ("CHF") -- when a weak heart muscle allows excess fluid to collect inthe lungs Panic attacks, anxiety -- fear can cause rapid breathing ("hyperventilation") Pneumonia -- infection in the lung tissue Exposure to toxic fumes or smoke Pulmonary embolus (blood clot to the lung) Based on your visit today, the exact cause of your shortness of breath is not certain. Your tests do not show any of the serious causes of dyspnea. Sometimes, further testing is needed to find out if a serious problem exists. Therefore, it is important for you to watch for any new symptoms or worsening of your condition and follow up with your doctor as directed. Home Care: When your symptoms are better, resume your usual activities. If you smoke, you need to stop. Join a stop-smoking program or ask your doctor for help. Follow Up with your doctor or as advised by our staff. Get Prompt Medical Attention if any of the following occur: Increasing shortness of breath or wheezing Redness, pain or swelling in one leg Swelling in both legs or ankles Unexpected weight gain Chest, arm, shoulder, neck or upper back pain Dizziness, weakness or fainting Palpitations (the sense that your heart is fluttering, beating fast or hard) Fever of 100.4F (38C) or higher, or as directed by your healthcare provider Cough with dark colored or bloody sputum (mucus) Bronchitis (Adult: Abx Tx) BRONCHITIS is an infection of the air passages (bronchial tubes). It often occurs during the common cold. Symptoms include cough with mucus (phlegm) and low-grade fever. Bronchitis usually lasts 7-14 days. Mild cases can be treated with simple home remedies. More severe infection is treated with an antibiotic. Home Care: If symptoms are severe, rest at home for the first 2-3 days. When you resume activity, don't let yourself get too tired. Do not smoke. Avoid being exposed to the smoke of others. You may use acetaminophen (Tylenol) or ibuprofen (Motrin, Advil) to control fever or pain, unless another medicine was prescribed for this. [NOTE: If you have chronic liver or kidney disease or ever had a stomach ulcer or GI bleeding, talk with your doctor before using these medicines.] Your appetite may be poor, so a light diet is fine. Avoid dehydration by drinking 6-8 glasses of fluids per day (water, soft, drinks, juices, tea, soup, etc.). Extra fluids will help loosen secretions in the lungs. Qyvr-pla-cnmmddp cough medicines that containdextromethorphan(such as Robitussin DM) and decongestants (Actifed or Sudafed) may help relieve cough and congestion. [NOTE: Do not use decongestants if you have high blood pressure.] Finish all antibiotic medicine, even if you are feeling better after only a few days. Follow Up with your doctor or as directed if you dont start to feel better after three days. [NOTE: If you are age 65 or older, or if you have chronic asthma or COPD, we recommend a PNEUMOCOCCAL VACCINATION every five years and a yearly INFLUENZAVACCINATION (FLU-SHOT) every . Ask your doctor about this. If you had an X-ray, a radiologist will review it. You will be notified of any new findings that may affect your care.] Get Prompt Medical Attention if any of the following occur: Fever over 100.4F (38.0C) for more than three days Trouble breathing, wheezing or pain with breathing Coughing up blood or increased amounts of colored sputum Weakness, drowsiness, headache, facial pain, ear pain or a stiff neck Clear Liquid Diet Clear liquids are any liquid that you can see through as well as those that are very easy to digest. This is used while the body is recovering from irritation or infection of the stomach or intestinal tract. It may also be used before special procedures or surgery. This diet is to be used no more than three days. You may include the following items. Adults Adults should drink a total of 23 quarts of liquid per day. It may be easier to drink small frequent servings rather than a few large ones. Liquids can include: Fruit juices.Strained orange juice or lemonade (no pulp), apple, grape and cranberry juice, clear fruit drinks, sports drinks Beverages.Sport drinks, sodas, mineral water (plain or flavored), tea, black coffee, liquid gelatin (add twice the recommended amount of water) Soups.Clear broth, consomm, bouillon Desserts.Plain gelatin, popsicles, fruit juice bars Children Over 2 years old The following liquids are acceptable for children over age 2: Fruit juices.Strained orange juice or lemonade (no pulp), apple, grape and cranberry juice, clear fruit drinks Beverages. Sports drinks, sodas, mineral water (plain or flavored), tea, liquid gelatin (add twice the recommended amount of water) Soups. Clear broth, consomm, bouillon Desserts. Plain gelatin, popsicles, fruit juice bars Children under 2 years old Oral rehydration fluids such are available at drug stores and most grocery stores without a prescription. Clear Liquid Diet Clear liquids are any liquid that you can see through as well as those that are very easy to digest. This is used while the body is recovering from irritation or infection of the stomach or intestinal tract. It may also be used before special procedures or surgery. This diet is to be used no more than three days. You may include the following items. Adults Adults should drink a total of 23 quarts of liquid per day. It may be easier to drink small frequent servings rather than a few large ones. Liquids can include: Fruit juices.Strained orange juice or lemonade (no pulp), apple, grape and cranberry juice, clear fruit drinks, sports drinks Beverages.Sport drinks, sodas, mineral water (plain or flavored), tea, black coffee, liquid gelatin (add twice the recommended amount of water) Soups.Clear broth, consomm, bouillon Desserts.Plain gelatin, popsicles, fruit juice bars Children Over 2 years old The following liquids are acceptable for children over age 2: Fruit juices.Strained orange juice or lemonade (no pulp), apple, grape and cranberry juice, clear fruit drinks Beverages. Sports drinks, sodas, mineral water (plain or flavored), tea, liquid gelatin (add twice the recommended amount of water) Soups. Clear broth, consomm, bouillon Desserts. Plain gelatin, popsicles, fruit juice bars Children under 2 years old Oral rehydration fluids such are available at drug stores and most grocery stores without a prescription. Promethazine Hydrochloride Oral tablet What is this medicine? PROMETHAZINE (proe METH a zeen) is an antihistamine. It is used to treat allergic reactions and to treat or prevent nausea and vomiting from illness or motion sickness. It is also used to make you sleep before surgery, and to help treat pain or nausea after surgery. How should I use this medicine? Take this medicine by mouth with a glass of water. Follow the directions on the prescription label. Take your doses at regular intervals. Do not take your medicine more often than directed. Talk to your medical attendant regarding the use of this medicine in children. Special care may be needed. This medicine should not be given to infants and children younger than 2 years old. What side effects may I notice from receiving this medicine? Side effects that you should report to your doctor or health youth career specialist as soon as possible: blurred vision irregular heartbeat, palpitations or chest pain muscle or facial twitches pain or difficulty passing urine seizures skin rash slowed or shallow breathing unusual bleeding or bruising yellowing of the eyes or skin Side effects that usually do not require medical attention (report to your doctor or health youth career specialist if they continue or are bothersome): headache nightmares, agitation, nervousness, excitability, not able to sleep (these are more likely in children) stuffy nose What may interact with this medicine? Do not take this medicine with any of the following medications: medicines called MAO Inhibitors like Nardil, Parnate, Marplan, Eldepryl other phenothiazines like trimethobenzamide This medicine may also interact with the following medications: barbiturates like phenobarbital bromocriptine certain antidepressants certain antihistamines used in allergy or cold medicines epinephrine levodopa medicines for sleep medicines for mental problems and psychotic disturbances medicines for movement abnormalities as in Parkinson's disease, or for gastrointestinal problems muscle relaxants prescription pain medicines What if I miss a dose? If you miss a dose, take it as soon as you can. If it is almost time for your next dose, take only that dose. Do not take double or extra doses. Where should I keep my medicine? Keep out of the reach of children. Store at room temperature, between 20 and 25 degrees C (68 and 77 degrees F). Protect from light. Throw away any unused medicine after the expiration date. What should I tell my health care provider before I take this medicine? They need to know if you have any of these conditions: glaucoma high blood pressure or heart disease kidney disease liver disease lung or breathing disease, like asthma prostate trouble pain or difficulty passing urine seizures an unusual or allergic reaction to promethazine or phenothiazines, other medicines, foods, dyes, or preservatives or trying to get breast-feeding What should I watch for while using this medicine? Tell your doctor or health youth career specialist if your symptoms do not start to get better in 1 to 2 days. You may get drowsy or dizzy. Do not drive, use machinery, or do anything that needs mental alertness until you know how this medicine affects you. To reduce the risk of dizzy or fainting spells, do not stand or sit up quickly, especially if you are an older patient. Alcohol may increase dizziness and drowsiness. Avoid alcoholic drinks. Your mouth may get dry. Chewing sugarless gum or sucking hard candy, and drinking plenty of water may help. Contact your doctor if the problem does not go away or is severe. This medicine may cause dry eyes and blurred vision. If you wear contact lenses you may feel some discomfort. Lubricating drops may help. See your eye doctor if the problem does not go away or is severe. This medicine can make you more sensitive to the sun. Keep out of the sun. If you cannot avoid being in the sun, wear protective clothing and use sunscreen. Do not use sun lamps or tanning beds/booths. If you are diabetic, check your blood-sugar levels regularly. Sucralfate Oral tablet What is this medicine? SUCRALFATE (FER rochelle fate) helps to treat ulcers of the intestine. How should I use this medicine? Take this medicine by mouth with a glass of water. Follow the directions on the prescription label. This medicine works best if you take it on an empty stomach, 1 hour before meals. Take your doses at regular intervals. Do not take your medicine more often than directed. Do not stop taking except on your doctor's advice. Talk to your medical attendant regarding the use of this medicine in children. Special care may be needed. What side effects may I notice from receiving this medicine? Side effects that you should report to your doctor or health youth career specialist as soon as possible: allergic reactions like skin rash, itching or hives, swelling of the face, lips, or tongue difficulty breathing Side effects that usually do not require medical attention (report to your doctor or health youth career specialist if they continue or are bothersome): back pain constipation drowsy, dizzy dry mouth headache stomach upset, gas trouble sleeping What may interact with this medicine? antacid cimetidine digoxin ketoconazole phenytoin quinidine ranitidine some antibiotics like ciprofloxacin, norfloxacin, and ofloxacin theophylline thyroid hormones warfarin What if I miss a dose? If you miss a dose, take it as soon as you can. If it is almost time for your next dose, take only that dose. Do not take double or extra doses. Where should I keep my medicine? Keep out of the reach of children. Store at room temperature between 15 and 30 degrees C (59 and 86 degrees F). Keep container tightly closed. Throw away any unused medicine after the expiration date. What should I tell my health care provider before I take this medicine? They need to know if you have any of these conditions: kidney disease an unusual or allergic reaction to sucralfate, other medicines, foods, dyes, or preservatives or trying to get breast-feeding What should I watch for while using this medicine? Visit your doctor or health youth career specialist for regular check ups. Let your doctor know if your symptoms do not improve or if you feel worse. Antacids should not be taken within one half hour before or after this medicine. Omeprazole Magnesium Gastro-resistant tablet What is this medicine? OMEPRAZOLE (oh ME pray zol) prevents the production of acid in the stomach. It is used to treat the symptoms of heartburn. You can buy this medicine without a prescription. This product is not for long-term use, unless otherwise directed by your doctor or health youth career specialist. How should I use this medicine? Take this medicine by mouth. Follow the directions on the product label. If you are taking this medicine without a prescription, take one tablet every day. Do not use for longer than 14 days or repeat a course of treatment more often than every 4 months unless directed by a doctor or healthcare professional. Take your dose at regular intervals every 24 hours. Swallow the tablet whole with a drink of water. Do not crush, break or chew. This medicine works best if taken on an empty stomach 30 minutes before breakfast. If you are using this medicine with the prescription of your doctor or healthcare professional, follow the directions you were given. Do not take your medicine more often than directed. Talk to your medical attendant regarding the use of this medicine in children. Special care may be needed. What side effects may I notice from receiving this medicine? Side effects that you should report to your doctor or health youth career specialist as soon as possible: allergic reactions like skin rash, itching or hives, swelling of the face, lips, or tongue bone, muscle or joint pain breathing problems chest pain or chest tightness dark yellow or brown urine diarrhea dizziness fast, irregular heartbeat feeling faint or lightheaded fever or sore throat muscle spasm palpitations redness, blistering, peeling or loosening of the skin, including inside the mouth seizures tremors unusual bleeding or bruising unusually weak or tired yellowing of the eyes or skin Side effects that usually do not require medical attention (Report these to your doctor or health youth career specialist if they continue or are bothersome.): constipation dry mouth headache loose stools nausea What may interact with this medicine? Do not take this medicine with any of the following medications: atazanavir clopidogrel nelfinavir This medicine may also interact with the following medications: ampicillin certain medicines for anxiety or sleep certain medicines that treat or prevent blood clots like warfarin cyclosporine diazepam digoxin disulfiram iron salts phenytoin prescription medicine for fungal or yeast infection like itraconazole, ketoconazole, voriconazole saquinavir tacrolimus What if I miss a dose? If you miss a dose, take it as soon as you can. If it is almost time for your next dose, take only that dose. Do not take double or extra doses. Where should I keep my medicine? Keep out of the reach of children. Store at room temperature between 20 and 25 degrees C (68 and 77 degrees F). Protect from light and moisture. Throw away any unused medicine after the expiration date. What should I tell my health care provider before I take this medicine? They need to know if you have any of these conditions: black or bloody stools chest pain difficulty swallowing have had heartburn for over 3 months have heartburn with dizziness, lightheadedness or sweating liver disease stomach pain unexplained weight loss vomiting with blood wheezing an unusual or allergic reaction to omeprazole, other medicines, foods, dyes, or preservatives or trying to get breast-feeding What should I watch for while using this medicine? It can take several days before your heartburn gets better. Check with your doctor or health youth career specialist if your condition does not start to get better, or if it gets worse. Do not treat diarrhea with over the counter products. Contact your doctor if you have diarrhea that lasts more than 2 days or if it is severe and watery. Do not treat yourself for heartburn with this medicine for more than 14 days in a row. You should only use this medicine for a 2-week treatment period once every 4 months. If your symptoms return shortly after your therapy is complete, or within the 4 month time frame, call your doctor or health youth career specialist. You have been given the following additional information: Dyspnea Bronchitis, Antiobiotic Treatment (Adult) Diet, Clear Liquid Diet, Clear Liquid Promethazine Hydrochloride Oral tablet Sucralfate Oral tablet Omeprazole Magnesium Gastro-resistant tablet Rest. Do not work for two days until better. (Electronically signed by Sanford Horton MD 01/01/2017 10:36)
--- NOTE | 2017-01-01 10:36 | ED MED RECONCILIATION SUMMARY ---
Patient: HALEIGH TALAMANTES Medication Reconciliation Report [facility] VisitID: [id number] [address] [place] [address] 56y, F Registration Date/Time: 12/29/2016 Weight: 102.9 kg Height/Length: 69 in. BMI: 33.5 ALLERGIES: Darovet, Morphine and Related, Percocet, Percodan The patient's Home Medications are listed below: CONTINUE TAKING THE FOLLOWING MEDICATIONS: AmLODIPine Besylate Oral 5 mg, daily Flonase Nasal Gabapentin Oral 600 mg, at bedtime Lantus Subcutaneous 60 Units, every PM Levothyroxine Sodium Oral 88 mcg, daily Losartan Potassium Oral 100 mg, daily NexIUM Oral NovoLOG Subcutaneous 45 Units, 4-6 times x daily Qvar Inhalation (40 mcg/act) 1-2 puffs, daily The source(s) of the original Home Medication information: Not obtained. The following Medications were given to the patient in the Emergency Department: IV NS IV Fluids bolus 0, then 250 mL/hr, administered: 12/29/2016 4:26:00 PM PHENERGAN [IVP] IVP 12.5 mg, administered: 12/29/2016 4:36:00 PM The following Medications were prescribed to the patient: Acetaminophen (available over the counter): take according to label instructions. -- Sanford Horton MD Zithromax 250 mg tablets: take 2 orally today, followed by 1 daily for the next 4 days. No refills. Substitution is permissible. -- Sanford Horton MD Phenergan 12.5 mg tablets: take 1-2 orally every 6 hours as needed for nausea. Dispense fifteen (15). No refill. Substitution is permissible -- Sanford Horton MD Carafate 1 gm tablets: take 1 orally four times daily (30 minutes before meals and at bedtime) for 10 days. Dispense forty (40). No refills. Substitution is permissible. -- Sanford Horton MD Prilosec 40 mg capsules: take 1 capsule orally every day for 10 days. Dispense ten (10). No refill. Substitution is permissible. -- Sanford Horton MD
--- NOTE | 2017-01-01 10:36 | ED MAR SUMMARY ---
..... Medication Administration Record [facility] [address] [place] [address] Patient: HALEIGH TALAMANTES Visit ID: [id number] 56y, F Weight: 102.9 kg Height/Length: 69 in BMI: 33.5 ALLERGIES: Percodan, Percocet, Darovet, Morphine and Related Start 16:26 12/29/2016 Sheeba Garcia R.N., Stop 18:31 12/29/2016 Sheeba Garcia R.N. Medication Administered: IV NS (SALINE), Dose: IV Fluids over 4 hour(s), Rate: 250 mL/hr, Dispensed: 250 mL bag, Site: #1 right AC. Medication Ordered: IV NS : initial bolus none -, then 250 mL/hr for 4h (NOW); Routine. Given 16:36 12/29/2016 Sheeba Garcia R.N. Medication Administered: PHENERGAN [IVP] (PROMETHAZINE HCL), Dose: 12.5 mg IVP over 30 second(s), Site: #1 right AC. Medication Ordered: Phenergan IV 12.5 mg (HIGH ALERT MEDICATION, NOW).
== END 2016-12-29 18:34 | disposition home or self-care (01) ==
LOC: ED SRH 15:01
DX: R06.00 Dyspnea, unspecified (principal); Z87.01 Personal history of pneumonia (recurrent); J02.9 Acute pharyngitis, unspecified; R05 Cough; K21.9 Gastro-esophageal reflux disease without esophagitis; E11.9 Type 2 diabetes mellitus without complications; Z79.4 Long term (current) use of insulin; Z79.899 Other long term (current) drug therapy; Z79.51 Long term (current) use of inhaled steroids; Z88.5 Allergy status to narcotic agent
CPT/HCPCS: 90004; 90074; 90100; 90616; 91400; 91585; 92235; 92610; 92720; 95059